=== PATIENT | male | born 1975 | race Caucasian/White ===

== ENCOUNTER 2019-08-10 18:39 | Emergency (ER) | payer OTHER ==
[~2019-08-10] VITALS: Ht 172.7 cm; Wt 74.8 kg
[~2019-08-10 18:39] MED LIST: BACTRIM DS TAB1 EACH PO; DOXYCYCLINE 10100 MG PO; FLOVENT HFA 2220 MCG INH; NOHOMEMEDICATIONS; NORCO 5-325 TA1 EACH PO; PERCOCET 5-3251 EACH PO; PREDNISONE 20 M20 M1 PO; VENTOLIN HFA 1818 GM INH; ZOFRAN ODT4 MG PO
[2019-08-10 19:49] LABS: ABSOLUTE NEUTROPHILS 4.7 thou/uL (1.4-8.2); BASOPHILS 0.7 % (0.0-2.0); EOSINOPHILS 2.6 % (0.0-3.0); HEMOGLOBIN 14.4 gm/dL (14.0-18.0); LYMPHOCYTES 31.4 % (24.0-44.0); MCH 31.8 pg (26.0-34.0); MCHC 34.2 g/dL (28.0-37.0); MCV 92.9 fL (80.0-100.0); MONOCYTES 7.2 % (1.0-8.0); PLATELET COUNT 203 thou/uL (150-400); POLYS 58.1 % (36.0-66.0); RBC 4.52 mil/uL (4.50-6.00); WBC 8.1 thou/uL (4.0-11.0)
[2019-08-10 19:59] LABS: CALCIUM 9.7 mg/dL (8.5-10.1); CREATININE 0.9 mg/dL (0.7-1.3); POTASSIUM 3.7 mmol/L (3.5-5.1)
[2019-08-10 20:05] LABS: ALBUMIN 3.6 g/dL (3.4-5.0); TOTAL BILIRUBIN 0.2 mg/dL (<0.1-1.0)
[2019-08-10] MEDS ORDERED: PREDNISONE 10 M10 MG PO (20:55)
[2019-08-10] MEDS ORDERED: ONDANSETRON HCL4 M2 PO (20:55)
[2019-08-10 21:17] VITALS: BP 116/75
== END 2019-08-10 21:21 | disposition home or self-care (01) ==
LOC: ER 18:39
PROVIDERS: Physician Assistant
DX: K51.90 Ulcerative colitis, unspecified, without complications (principal); L73.9 Follicular disorder, unspecified; R11.2 Nausea with vomiting, unspecified; R10.33 Periumbilical pain; F17.210 Nicotine dependence, cigarettes, uncomplicated; Z91.19 Patient's noncompliance with other medical treatment and regimen; Z88.0 Allergy status to penicillin